=== PATIENT | female | born 1980 | race Hispanic/Latino ===

== ENCOUNTER 2024-09-27 18:47 | Emergency (ER) | payer BC ==
[~2024-09-27] VITALS: Ht 160 cm; Wt 63.5 kg
[2024-09-27 19:18] LABS: HCG,QUALITATIVE URINE NEGATIVE (NEGATIVE)
[2024-09-27 19:27] LABS: ADD UA MICROSCOPIC YES; APPEARANCE,URINE CLEAR (CLEAR); BILIRUBIN,URINE NEGATIVE (NEGATIVE); COLOR,URINE LIGHT-YELLOW (YELLOW); GLUCOSE, URINE (UA) >=1000 mg/dL (NEGATIVE); KETONES,URINE 10 mg/dL (NEGATIVE); LEUKOCYTE ESTERASE ,URINE NEGATIVE Leu/uL (NEGATIVE); NITRATE,URINE NEGATIVE (NEGATIVE); OCCULT BLOOD,URINE NEGATIVE (NEGATIVE); PROTEIN,URINE 10 mg/dL (NEGATIVE); UROBILINOGEN,URINE 0.2 mg/dL (0.2-1.0)
[2024-09-27 19:31] LABS: BACTERIA,URINE RARE /HPF (None Seen)
[2024-09-27 19:32] LABS: SQUAMOUS EPITHELIAL CELL,UR Few /HPF (0-2)
[2024-09-27 19:44] LABS: BASOPHILS # (AUTO) 0.03 K/uL (0.00-0.20); BASOPHILS % (AUTO) 0.4 % (0.0-5.0); EOSINOPHILS # (AUTO) 0.03 K/uL (0.00-0.70); EOSINOPHILS % (AUTO) 0.4 % (0.0-8.0); IMMATURE GRANULOCYTE ABSOLUTE 0.02 K/uL (0-1); LYMPHOCYTES # (AUTO) 1.4 K/uL (1.0-4.8); LYMPHOCYTES % (AUTO) 19.2 % (21.0-51.0); MEAN CORPUSCULAR HEMOGLOBIN 30.3 pg (27.0-33.0); MEAN CORPUSCULAR HGB CONC 36.2 g/dL (32.0-36.0); MEAN CORPUSCULAR VOLUME 83.6 fL (79-99); MONOCYTES # (AUTO) 0.4 K/uL (0.1-1.0); MONOCYTES % (AUTO) 5.3 % (3.0-13.0); NEUTROPHILS # (AUTO) 5.2 K/uL (1.8-7.7); NEUTROPHILS % (AUTO) 74.4 % (40.0-77.0); PLATELET COUNT (AUTO) 231 K/uL (130-400); RED BLOOD CELL COUNT(AUTO) 5.38 MIL/uL (4.00-5.50); RED CELL DISTRIBUTION WIDTH 12.8 % (11.0-15.5)
[2024-09-27 19:58] LABS: CREATININE 0.7 mg/dL (0.5-1.0); POTASSIUM 4.2 mmol/L (3.5-5.1)
--- NOTE | 2024-09-27 20:04 | HMCIMG ---
Exam Type: FOOT COMP 3+VWS LT Clinical Information: pain Comparison: None Findings: The bone examination is unremarkable. No fractures or dislocations are seen. No radiopaque foreign bodies are noted. Soft tissues are preserved. IMPRESSION: Normal examination.
[2024-09-27 20:05] LABS: AMPHET/METH SCREEN,URINE NEGATIVE (NEGATIVE); BARBITURATE SCREEN, URINE NEGATIVE (NEGATIVE); BENZODIAZEPINES SCREEN,URINE NEGATIVE (NEGATIVE); CANNABINOID SCREEN,URINE NEGATIVE (NEGATIVE); COCAINE SCREEN,URINE NEGATIVE (NEGATIVE); OPIATE SCREEN,URINE NEGATIVE (NEGATIVE); PHENCYCLIDINE SCREEN,URINE NEGATIVE (NEGATIVE)
--- NOTE | 2024-09-27 20:06 | HMCIMG ---
Exam Type: WRIST COMP 3+VWS RT Clinical Information: pain Comparison: None Findings: The bone examination is unremarkable. No fractures or dislocations are seen. No radiopaque foreign bodies are noted. Soft tissues are preserved. IMPRESSION: Normal examination.
--- NOTE | 2024-09-27 20:06 | HMCIMG ---
Exam Type: ELBOW 2VWS LT Clinical Information: pain Comparison: None Findings: The bone examination is unremarkable. No fractures or dislocations are seen. No radiopaque foreign bodies are noted. Soft tissues are preserved. IMPRESSION: Normal examination.
--- NOTE | 2024-09-27 20:06 | HMCIMG ---
Exam Type: HAND 3+VWS RT Clinical Information: pain Comparison: None Findings: The bone examination is unremarkable. No fractures or dislocations are seen. No radiopaque foreign bodies are noted. Soft tissues are preserved. IMPRESSION: Normal examination.
[2024-09-27] MEDS: 0.9%NACL 1000ML 1,000 ML IV ONE (20:29)
[2024-09-27] MEDS: acetaMINOPHEN 500 MG TABLET PO ONE (20:29)
[2024-09-27] MEDS: INSULIN humuLIN R 100 UNIT/ML 3ML SQ ONE (20:31)
--- NOTE | 2024-09-27 20:56 | ERN ---
General Chief Complaint: Medical Clearance Stated Complaint: RT WRIST, LEFT FOOT Time Seen by MD: 18:52 Time Seen by Midlevel: 18:52 Source: patient History of Present Illness Initial Comments 44-year-old female who presents to the emergency department for medical clearance. Patient is stating she is not feeling well and is complaining of right wrist, right hand, left foot, and left elbow pain. Per patient her glucose was elevated in the ambulance but she wanted to wait to be evaluated in the ER. She denies any chest pain, abdominal pain, headache or further associated symptoms. PMHx DM, HTN Allergies: Coded Allergies: povidone-iodine (Unverified Allergy, Unknown, 09/27/24) Past Medical History Past Medical History: Diabetes-Type II, Hypertension, Pancreatitis Past Surgical History: None ROS Dictation Constitutional: Negative for fever,chills, and weight loss Eyes: Negative for injury, pain,redness, and discharge ENT: Negative for injury,pain or swelling Cardiovascular: Negative for chest pain, palpitations, and edema Respiratory: Negative for shortness of breath, cough, and wheezing, Abdomen/GI: Negative for abdominal pain, nausea, vomiting, diarrhea, and constipation Back: Negative for injury and pain : Negative for painful urination, bleeding or discharge MS/Extremity: Positive for right hand, right wrist, left foot, and left elbow pain Negative for injury and deformity Skin: Negative for rash, and discoloration Neuro: Negative for headache, weakness, numbness, tingling, and seizure Psych: Negative for suicide ideation, homicidal ideation, and hallucinations Physical Exam Physical Exam Dictation General: awake, alert, no acute distress Head/Face: Normocephalic, atraumatic Eyes: PERRL, EOMI, normal conjunctiva ENT: oral cavity clear, oral mucosa moist Neck: Supple, normal range of motion Cardiovascular: RRR, normal S1/S2 Respiratory: CTAB, no respiratory distress Skin: Warm, dry, normal turgor, no rash MS/Extremity: Pulses equal, no cyanosis, neurovascular intact, FROM. Tenderness to the lateral aspect of the right hand. Tenderness to the dorsal aspect of the left foot. Neuro: COAx4, GCS 15, strength 5/5, CN 2-12 intact, normal cerebellar exam, normal gait Psych: Normal behavior, mood, and affect normal Results Laboratory and Microbiology Lab and Micro Result Laboratory Tests Test 09/27/24 19:06 09/27/24 19:32 09/27/24 20:48 09/27/24 21:39 Urine Color LIGHT-YELLOW (YELLOW) Urine Appearance CLEAR (CLEAR) Urine pH 5.0 (5.0-8.0) Urine Specific Sidney 1.031 (1.001-1.031) Urine Protein 10 mg/dL (NEGATIVE) H Urine Glucose (UA) >=1000 mg/dL (NEGATIVE) H Urine Ketones 10 mg/dL (NEGATIVE) H Urine Occult Blood NEGATIVE (NEGATIVE) Urine Nitrate NEGATIVE (NEGATIVE) Urine Bilirubin NEGATIVE mg/dL (NEGATIVE) Urine Urobilinogen 0.2 mg/dL (0.2-1.0) Urine Leukocyte Esterase NEGATIVE Jamal/uL Urine RBC 2-5 /HPF (0-1) H Urine WBC 2-5 /HPF (0-1) H Urine Squamous Epithelial Cells Few /HPF (0-2) Urine Bacteria RARE /HPF (None Seen) Urine HCG, Qualitative NEGATIVE (NEGATIVE) Urine Opiates Screen NEGATIVE (NEGATIVE) Urine Barbiturates Screen NEGATIVE (NEGATIVE) Urine Phencyclidine Screen NEGATIVE (NEGATIVE) Urine Amphetamines Screen NEGATIVE (NEGATIVE) Urine Benzodiazepines Screen NEGATIVE (NEGATIVE) Urine Cocaine Screen NEGATIVE (NEGATIVE) Urine Marijuana (THC) Screen NEGATIVE (NEGATIVE) White Blood Count 7.0 K/uL (4.8-10.8) Red Blood Count 5.38 MIL/uL (4.00-5.50) Hemoglobin 16.3 g/dL (12.0-16.0) H Hematocrit 45.0 % (36-48) Mean Corpuscular Volume 83.6 fL (79-99) Mean Corpuscular Hemoglobin 30.3 pg (27.0-33.0) Mean Corpuscular Hemoglobin Concent 36.2 g/dL (32.0-36.0) H Red Cell Distribution Width 12.8 % (11.0-15.5) Platelet Count 231 K/uL (130-400) Mean Platelet Volume 10.4 fL (7.5-10.5) Immature Granulocyte % (Auto) 0.3 % (0-1) Neutrophils (%) (Auto) 74.4 % (40.0-77.0) Lymphocytes (%) (Auto) 19.2 % (21.0-51.0) L Monocytes (%) (Auto) 5.3 % (3.0-13.0) Eosinophils (%) (Auto) 0.4 % (0.0-8.0) Basophils (%) (Auto) 0.4 % (0.0-5.0) Neutrophils # (Auto) 5.2 K/uL (1.8-7.7) Lymphocytes # (Auto) 1.4 K/uL (1.0-4.8) Monocytes # (Auto) 0.4 K/uL (0.1-1.0) Eosinophils # (Auto) 0.03 K/uL (0.00-0.70) Basophils # (Auto) 0.03 K/uL (0.00-0.20) Absolute Immature Granulocyte (auto 0.02 K/uL (0-1) Nucleated Red Blood Cells 0.0 % (0.0-0.19) Red Blood Cell Morphology See comments Sodium Level 133 mmol/L (136-145) L Potassium Level 4.2 mmol/L (3.5-5.1) Chloride Level 97 mmol/L (101-111) L Carbon Dioxide Level 24 mmol/L (21-32) Blood Urea Nitrogen 12 mg/dL (7-18) Creatinine 0.7 mg/dL (0.5-1.0) Glomerular Filtration Rate Calc 109 mL/min (>90) Random Glucose 406 mg/dL (70-105) *H Total Calcium 9.5 mg/dL (8.5-10.1) Whole Blood Ketones Quantitative 0.4 mmol/L (0.0-0.6) Whole Blood Glucose 308 MG/DL (70-110) H Test 09/27/24 22:39 Whole Blood Glucose 310 MG/DL (70-110) H Labs Reviewed?: Yes MDM MDM: Differential diagnosis: Hyperglycemia, joint injury, sprain, strain, fracture Rationale: 44-year-old female who presents to the emergency department for medical clearance. Patient is stating she is "not feeling well" and is complain ing of right wrist, right hand, left foot, and left elbow pain. Per patient her glucose was elevated in the ambulance but she wanted to wait to be evaluated in the ER. She denies any chest pain, abdominal pain, headache or further associated symptoms. PMHx DM, HTN Per physical examination no obvious deformities noted to any of the extremities, mild tenderness to the right wrist/hand, and tenderness to the dorsal aspect of the left foot, neurovascularly intact. Labs obtained show elevated hemoglobin of 16.3, hyponatremia 133, hypochloremia 97, initial glucose 406. Blood ketones negative. Per lab results no indication of patient being in DKA. UA negative for urinary tract infection. Tox screen negative. Patient received 10 units insulin and IV fluids. On repeat patient's glucose was 308. 5 units of insulin were then administered. X-rays of the right hand, wrist, left foot and left elbow were obtained with no indications of fractures or dislocations. On recheck of sugar was 310 however patient stated she wanted no more medications and wanted to be discharged to go. Patient was educated on findings and diagnosis. Advised to follow up with PCP. Return to the emergency department if any worsening symptoms. Patient verbalized understanding. Patient stable for discharge. There are no social concerns with this patient. I independently interpreted the test that were performed, results were reviewed by me and considered findings on radiology if ordered. Medical management and examination interpretation discussions were had by me with other qualified healthcare professionals as indicated for the patient's care. ED Course Orders Procedure Category Date Status Time Urinalysis Profile LAB 09/27/24 Complete 19:07 ,Urine Test LAB 09/27/24 Complete 19:07 Wrist Comp 3+Vws Rt RAD 09/27/24 Resulted 19:11 Foot Comp 3+Vws Lt RAD 09/27/24 Resulted 19:11 Drug Screen Urine LAB 09/27/24 Complete 19:11 Hand 3+Vws Rt RAD 09/27/24 Resulted 19:11 Elbow 2vws Lt RAD 09/27/24 Resulted 19:11 Cbc With Differential LAB 09/27/24 Complete 19:11 Basic Metabolic Panel LAB 09/27/24 Complete 19:11 Acetaminophen 500mg PHA 09/27/24 Complete Tab (Tylenol 500mg T 20:30 0.9%Nacl 1000ml (Ns PHA 09/27/24 Complete 1000ml) 20:30 Insulin Regular, PHA 09/27/24 Complete Human 3ml (Humulin R 20:30 Ketone Blood LAB 09/27/24 Complete Quantitative 20:32 Bedside Glucose CPOE 09/27/24 Transmitted Fingerstick 20:56 Insulin Regular, PHA 09/27/24 Complete Human 3ml (Humulin R 22:00 Ketorolac PHA 09/27/24 Complete Tromethamine 15mg/Ml 22:00 Bedside Glucose CPOE 09/27/24 Transmitted Fingerstick 22:22 Current Medications Medications (Trade) Dose Ordered Sig/Shanice Route PRN Reason Start Time Stop Time Status Last Admin Dose Admin Acetaminophen (TYLenol 500MG TAB) 1,000 mg ONCE ONCE PO 09/27/24 20:30 09/27/24 20:31 DC 09/27/24 20:29 Insulin Human Regular (humuLIN R 100 UNIT/ML 3ML) 5 unit ONCE ONCE IV 09/27/24 22:00 09/27/24 22:01 DC 09/27/24 21:53 Insulin Human Regular (humuLIN R 100 UNIT/ML 3ML) 10 unit ONCE ONCE SQ 09/27/24 20:30 09/27/24 20:31 DC 09/27/24 20:31 Ketorolac Tromethamine (toRADol) 15 mg ONCE ONCE IV 09/27/24 22:00 09/27/24 22:01 DC 09/27/24 21:52 Sodium Chloride 1,000 ml @ 0 mls/hr ONCE ONCE IV 09/27/24 20:30 09/27/24 20:31 DC 09/27/24 20:29 Vital Signs Date Time Temp Pulse Resp B/P (MAP) Pulse Ox O2 Delivery O2 Flow Rate FiO2 09/27/24 23:18 99.0 100 18 143/96 98 Room Air* 0 09/27/24 21:29 98.6 95 16 120/60 98 Room Air* 0 21 09/27/24 19:05 99.1 95 16 118/55 98 Room Air* 0 09/27/24 18:51 99.1 98 20 118/56 99 Room Air 0 DX & DISP Disposition: Discharge Departure Impression: Primary Impression: Medical clearance for incarceration Additional Impressions: Hyperglycemia due to diabetes mellitus, Wrist sprain Condition: Stable Additional Instructions: Discharge home. Rest. Follow up with primary care in 24 hours. Return to the ER for any acute changes or worsening symptoms. If any medications were prescribed take as directed. Okay to continue home medications unless otherwise discussed during your visit in the emergency room today. Patient was also advised to follow-up with primary care physician in 1 to 2 days for continued monitoring. Referrals: OSWALD TORRE MD (PCP) I performed the substantive portion of the visit. I have reviewed and personally made and approve the management plan that is documented in the notes by myself or the CURLY. I acknowledge full responsibility for the patient's management plan. JULIET HONG Sep 27, 2024 20:56
[2024-09-27] MEDS: ketOROlac 15MG/ML VIAL (15MG/ML) IV ONE (21:52)
[2024-09-27] MEDS: INSULIN humuLIN R 100 UNIT/ML 3ML IV ONE (21:53)
--- NOTE | 2024-09-27 22:01 | NUR ---
PT BROUGHT TO FACILITY BY [facility] AFTER BEING DETAINED AT [facility]. PT COMPLAINS OF BILAT ARM PAIN AND LEFT GREAT TOE PAIN. pOST OP SURGICAL SHOE PLACED TO PREVENT FURTHER INJURY TO TOE AND PREFORMED WRIST SPLINT PLACED FOR SUPPORT OF RIGHT WRIST. CIRCULATION CHECKED POST APPLICATION AND NO CIRCULATION DEF NOTED. PT SON ENTERED THE BUILDING AND OFFICERES ALLOWED ACCESS. MANUFACTURING FINANCE MANAGER NOTIFIED OF ERROR AND NO FURTHER VISITORS WILL BE ALLOWED. PT DISPLAYS NO VISABLE DISTRESS AND AWAITS DISCHARGE AFTER TREATMENT OF HYPERGLYCEMIA. [facility] CONCERNED ABOUT SON KNOWING HER LOCATION I INFORMED THEM INFORMATION NOT PROVIDED BY [facility] HOWEVER PT INFORMED ME SHE HAS GPS TRACKER INPLANTED WITHIN HER BODY.
--- NOTE | 2024-09-27 22:11 | NUR ---
RECONFIRMED WITH PATIENT VISITOR WAS HER SON AND THAT SHE WAS SAFE AND SHE ASSURED ME THAT IT WAS HER SON AND SAFETY WAS NOT A CONCERN
--- NOTE | 2024-09-27 22:13 | NUR ---
CARE OF PATIENT TRANSFERED TO [place] AT THIS TIME
--- NOTE | 2024-09-27 22:55 | NUR ---
PATIENT REFUSED FURTHER INSULIN, STATES WANTS TO BE DISCHARGED.
[2024-09-27 23:18] VITALS: BP 143/96; PULSE 100; RESP 18; TEMP 99; O2SAT 98
== END 2024-09-27 23:19 ==
LOC: EEVIPCON 18:47 → EDH 18:47
DX: S63.501A Unspecified sprain of right wrist, initial encounter (principal); E11.65 Type 2 diabetes mellitus with hyperglycemia; I10 Essential (primary) hypertension; Z88.8 Allergy status to other drugs, medicaments and biological substances; X58.XXXA Exposure to other specified factors, initial encounter; Y93.89 Activity, other specified; Y92.89 Other specified places as the place of occurrence of the external cause; Y99.8 Other external cause status
CPT/HCPCS: 99284; 96374; 96361; 96375; 80048; 80305; 85025; 82948 ×2; 82010; 81001; 81025; 36415; 73070; 73630; 73130; 73110; 96372; J1815 ×2; J1885; J7030